=== PATIENT | female | born 1955 | race Caucasian/White ===

== ENCOUNTER 2022-10-26 09:02 | Day surgery (SDC) | payer BC ==
[2022-10-26] MEDS: Lactated Ringers 1,000 ML IV SCH (09:32)
[2022-10-26] MEDS ORDERED: Propofol 200 MG/20 ML SDV ONE ×2 (10:49→12:07)
[2022-10-26] MEDS ORDERED: fentaNYL 100 MCG/2 ML SDV ONE (10:49)
== END 2022-10-26 13:35 | disposition home or self-care (01) ==
LOC: VM.SDS 09:02
PROVIDERS: ATTEND Student in an Organized Health Care Education/Training Program
DX: Z12.11 Encounter for screening for malignant neoplasm of colon (principal); D50.9 Iron deficiency anemia, unspecified; G47.00 Insomnia, unspecified; M85.80 Other specified disorders of bone density and structure, unspecified site; Z88.0 Allergy status to penicillin; Z88.6 Allergy status to analgesic agent; Z98.890 Other specified postprocedural states; Z79.899 Other long term (current) drug therapy; Z87.891 Personal history of nicotine dependence
CPT/HCPCS: 00812; J2704; J3010; J7120